=== PATIENT | male | born 1970 | race Caucasian/White ===

== ENCOUNTER → 2020-07-03 08:16 | Outpatient (CLI) | payer OTHER, SELFPAY ==
--- NOTE | ~2020-07-03 | CT_ITS ---
EXAMINATION: CT pelvis wo con DATE: 07/03/2020 08:42 INDICATION: Left lower quadrant abdominal/pelvic pain. TECHNIQUE: Computed tomography (CT) of the pelvis was performed without intravenous contrast. Automat ed exposure control and iterative reconstruction technique were employed. The dose-length product was 451.75 mGy-cm. COMPARISON: None FINDINGS: Moderate amount of stool scattered throughout the visualized colon. No bowel obstruction. Normal appe ndix. Postoperative change of prior right inguinal hernia mesh repair. Bladder is normal. Visualized caudal tip of the right hepatic lobe and the lower poles of both kidneys are also normal. No free int raperitoneal gas or fluid. No pathologically enlarged abdominal or pelvic lymphadenopathy. Mild lower lumbar spondylosis and mild bilateral hip and sacroiliac osteoarthritis. IMPRESSION: 1. Moderate amount of colonic stool which could be seen with constipation. Otherwise no evident acute process in the pelvis or visualized lower abdomen. 2. Postoperative change of prior right inguinal hernia repair. Reviewed, dictated and finalized at location A. IMPRESSION: 1. Moderate amount of colonic stool which could be seen with constipation. Othe rwise no evident acute process in the pelvis or visualized lower abdomen. 2. Postoperative change of prior right inguinal hernia repair.
== END ==
PROVIDERS: PCP Family Medicine; Visit Provider Surgery
DX: R10.32 Left lower quadrant pain (principal); R10.33 Periumbilical pain; Z98.890 Other specified postprocedural states
CPT/HCPCS: 72192

== ENCOUNTER → 2020-11-10 10:38 | Outpatient (CLI) | payer OTHER, SELFPAY ==
--- NOTE | ~2020-11-10 | MR_ITS ---
EXAMINATION: MR pelvis wo/w con DATE: 11/10/2020 12:02 INDICATION: Left lower quadrant abdominal pain and left groin pain. TECHNIQUE: Magnetic resonance imaging (MRI) of the pelvis was performed without and with 15 mL Multih ance intravenous contrast. Sequences included axial T1-weighted FSE, axial T2-weighted FS FSE, mooney l T1-weighted FSE, coronal T2-weighted FS FSE, sagittal T1-weighted FSE and sagittal T2-weighted FS F SE. Precontrast axial T1-weighted FS FSE and post contrast axial, sagittal and coronal T1-weighted FS FSE were also obtained. COMPARISON: None. FINDINGS: Bone alignment is normal. Small T1 hyperintense hemangioma at S1. Marrow signal is otherwise normal w ith no reactive edema, fracture, osteonecrosis or pathologic marrow replacing process. The bilateral hip joint spaces appear normal with small marginal osteophytes about the acetabula consistent with mi ld osteoarthritis. No hip joint effusions. Mild bilateral sacroiliac osteoarthritis without increased fluid or enhancement to suggest an inflammatory sacroiliitis. Mild to moderate lower lumbar facet os teoarthritis greatest on the right at L5-S1. Visualized bowels are unremarkable with normal appendix. Bladder and prostate are unremarkable. Postoperative change of prior right inguinal hernia mesh repa ir. No ventral or left inguinal hernias. No free fluid in the pelvis. No pathologically enlarged bila teral pelvic or inguinal lymphadenopathy. IMPRESSION: 1. Change of prior right inguinal hernia mesh repair. 2. Mild bilateral hip and sacroiliac osteoarthritis and mild to moderate lower lumbar facet osteoarth ritis. Reviewed, dictated and finalized at location A. IMPRESSION: 1. Change of prior right inguinal hernia mesh repair. 2. Mild bilateral hip and sacroiliac osteoarthritis and mild to moderate lower lumbar facet osteoarthritis.
[2020-11-10 11:24] LABS: Estimated Glomerular Filt Rate > 60
== END ==
PROVIDERS: PCP Internal Medicine; Visit Provider Surgery
DX: R10.32 Left lower quadrant pain (principal); M17.0 Bilateral primary osteoarthritis of knee
CPT/HCPCS: 72197; A9577

== ENCOUNTER 2021-08-20 08:58 | Outpatient (CLI) | payer OTHER, SELFPAY | END 2021-08-20 08:59 | disposition home or self-care (01) | LOC: ANHSURGERY 09:03 | PROVIDERS: PCP Internal Medicine; Visit Provider Surgery | DX: Z01.818 Encounter for other preprocedural examination (principal); K40.90 Unilateral inguinal hernia, without obstruction or gangrene, not specified as recurrent | CPT/HCPCS: 36415; 86850; 86900; 86901 ==

== ENCOUNTER 2021-08-25 00:54 | Day surgery (SDC) | payer OTHER, SELFPAY ==
[2021-08-18 14:57] VITALS: BMI 24.2
--- NOTE | 2021-08-18 15:05 | PC.NURSE ---
Report to the Outpatient Waiting Room, entrance under the green pavilion located off [facility], at time 6:00 on date 08/25/21. OR Time: 8:00. - You and your visitor will be asked a series of questions to screen for COVID 19 for your protection. - Only one visitor is allowed at this time. - The patient visitor is requested to leave or wait in car when not with patient. - A mask is required within the hospital. Patients may have clear liquids (water, carbonated beverages, clear teas, apple juice) until 3 hours prior to surgery (5:00) with a maximum of 20 ounces. - No food from midnight until time of surgery Take the following medications with a SIP of water the morning of surgery: NONE Medications to discontinue per physician: VITAMINS/SUPPLEMENTS Date to take last dose: 08/21/21 Please no make-up, nail syrian, hairspray, perfume, deodorant, or body powder the day of surgery. No jewelry (including any body piercings) or valuables the day of surgery, leave them at home. Please take a shower or bath the night before, or the morning of, surgery with an antibacterial soap. Wear comfortable, loose fitting clothing. HIBICLENS SHOWER - Jewelry must be removed prior to entering the operating room. Rings and piercings that are not removed may be cut off. - The hospital will not accept responsibility for valuables. - Please leave all valuables, including medications, at home the day of surgery. If you are going home after surgery, a licensed tanker truck driver must drive you home. - NO public transportation without another adult. - We recommend that an adult stay with you for 24 hours following discharge. - We also recommend that you do not drive, make important decision, drink alcoholic beverages, or take any drugs that were not prescribed by your health care provider for at least 24 hours after your discharge time. Follow any additional instructions given to you from your surgeon. If you or anyone in your household have experienced Covid symptoms in the past week, please notify your surgeon or the nurse liaison at the phone number below for possible testing. Telephone instructions given to PT - ELSIE REDDY and asked if any additional questions and then verbalized understanding. Patient advised to call surgeon office or pre surgery nurse liaison [phone] if any additional questions.
--- NOTE | 2021-08-24 09:43 | WPDANESEPPF ---
Anes - Initial Pre Proc Eval Procedure: Operation Date: 08/25/21 08:00 Proposed Procedures p Laparoscopic Assisted Left Inguinal Hernia Repair with Mesh, Davinci Assisted - Luis Calix DO <Jed Saldana DO - Last Filed: 09/02/21 09:06> Date/Time: 08/24/21 09:43 <Jed Saldana DO - Last Filed: 09/02/21 09:06> Surgeon: Luis Calix DO <Jed Saldana DO - Last Filed: 09/02/21 09:06> Pre Op Diagnosis: left inguinal hernia <Jed Saladna DO - Last Filed: 09/02/21 09:06> Patient Data Age: 50 Gender: M Height: 1.87 m Weight: 84.5 kg <Jed Saldana DO - Last Filed: 09/02/21 09:06> Allergies Allergy/AdvReac Type Severity Reaction Status Date / Time No Known Allergies Allergy Unknown Verified 08/25/21 06:15 <Jed Saldana DO - Last Filed: 09/02/21 09:06> Home Medications Medication Instructions Recorded Confirmed Type ascorbate calcium (vitamin C) 500 500 mg PO DAILY 05/29/20 08/25/21 History mg tablet glucosamine 750 mg-chondroit 100 1 tablet PO DAILY 05/29/20 08/25/21 History mg-msm-D3 25 [id number] bor tablet cholecalciferol (vitamin D3) 25 25 mcg PO DAILY 06/03/21 08/25/21 History mcg (1,000 unit) capsule hydrocodone 5 mg-acetaminophen 325 1 tablet PO Q4H PRN pain #10 tabs 08/25/21 Rx mg tablet <Jed Saldana DO - Last Filed: 09/02/21 09:06> Patient hx anesthesia problems: none <Jed Saldana DO - Last Filed: 09/02/21 09:06> Family hx anesthesia problems: none <Jed Saldana DO - Last Filed: 09/02/21 09:06> Results Review: All pre-operative results and documents have been reviewed as part of the pre-operative evaluation. <Jed Saldana DO - Last Filed: 09/02/21 09:06> [facility] Past Medical History Medical History: Medical History Inguinal hernia Umbilical hernia <Jed Saldana DO - Last Filed: 09/02/21 09:06> Surgical History Surgical History: Surgical History H/O umbilical hernia repair Umbilical hernia repair 12/11/18 History of shoulder surgery 1993 S/P laparoscopic hernia repair Laparoscopic right inguinal hernia repair with mesh 12/11/18. <Jed Saldana DO - Last Filed: 09/02/21 09:06> Family History Family History: Family History Father Family history of malignant neoplasm Mother Family history of malignant neoplasm Small cell lung cancer <Jed Saldana DO - Last Filed: 09/02/21 09:06> Social History Social History: Social History Smoking status: Never smoker Alcohol intake: current Drinks per week: 4 Alcohol use details: Weekly Substance use: never Substance use type: does not use Spiritual care concerns: No <Jed Saldana DO - Last Filed: 09/02/21 09:06> Anes - Eval Final PreProcedure Day of Procedure 08/24/21 09:43 <Jed Saldana DO - Last Filed: 09/02/21 09:06> Patient weight: normal <Jed Saldana DO - Last Filed: 09/02/21 09:06> Heart: regular rate and rhythm <Jed Saldana DO - Last Filed: 09/02/21 09:06> Lungs: clear to auscultation <Jed Saldana DO - Last Filed: 09/02/21 09:06> Airway: Mallampati scale class II <Jed Saldana DO - Last Filed: 09/02/21 09:06> Neurological: alert and oriented <Jed Saldana DO - Last Filed: 09/02/21 09:06> Last oral intake: >/= 8 hours <Jed Saldana DO - Last Filed: 09/02/21 09:06> ASA classification: III <Jed Saldana DO - Last Filed: 09/02/21 09:06> II <Jason Maguire MD - Last Filed: 08/25/21 07:04> Emergent:
[2021-08-25] VITALS (18 sets, daily range): BP systolic 100–144; BP diastolic 57–88; PULSE 63–87; RESP 12–16; TEMP 36.3–36.4; O2SAT 99–100; BMI 24.0
[2021-08-25] MEDS: LACTATED RINGERS 1,000 ML 30 ML IV CONT ×3 (07:13→12:35)
[2021-08-25] MEDS: KETOROLAC 15 MG/ML VIAL (*BKC) IV PUSH (07:16)
[2021-08-25] MEDS: ACETAMINOPHEN 500 MG TABLET 1000 MG PO (07:36)
--- NOTE | 2021-08-25 07:43 | WPDHPUPDATE1 ---
History and Physical Update Update Date/Time: 08/25/21 07:43 History and Physical has been reviewed, including an updated exam of the patient. There are NO changes in the patient's condition. Risks, benefits, and alternatives have been discussed and questions answered. Patient agrees to proceed with procedure.
--- NOTE | 2021-08-25 07:43 | PM.IMHP ---
H&P: HPI History of Present Illness Date/Time: 08/25/21 07:43 Chief Complaint: Left inguinal hernia Narrative: 50 yo man presents for left inguinal hernia repair. He reports no changes since last seen in office. Review of Systems Review of Systems: All systems reviewed & are unremarkable except as noted in HPI and below Constitutional: Constitutional: Denies chills, Denies fever(s), Denies headache(s) and Denies weight loss Eyes: Eyes: Denies change in vision ENT: Denies dizziness, Denies headache(s), Denies neck mass and Denies throat swelling Cardiovascular: Cardiovascular: Denies chest pain, Denies lightheadedness and Denies dyspnea Respiratory: Respiratory: Denies cough, Denies dyspnea and Denies wheezing Gastrointestinal: Gastrointestinal: Denies abdominal pain, Denies change in bowel habits, Denies nausea and Denies vomiting Genitourinary: Genitourinary: Denies hematuria and Denies dysuria Musculoskeletal: Musculoskeletal: Reports as per HPI Integumentary/Breasts: Skin/Breast: Reports as per HPI Neurologic: Denies dizziness and Denies headache(s) Allergic/Immunologic: Allergic/Immunologic: Denies throat swelling and Denies wheezing [facility] Past Medical History Medical History Inguinal hernia Umbilical hernia Surgical History Surgical History H/O umbilical hernia repair Umbilical hernia repair 12/11/18 History of shoulder surgery 1993 S/P laparoscopic hernia repair Laparoscopic right inguinal hernia repair with mesh 12/11/18. Family History Family History Father Family history of malignant neoplasm Mother Family history of malignant neoplasm Small cell lung cancer Social History Social History Smoking status: Never smoker Alcohol intake: current Drinks per week: 4 Alcohol use details: Weekly Substance use: never Substance use type: does not use Living arrangements: with family Spiritual care concerns: No Meds Home Medications and Allergies Home Medications Medication Instructions Recorded Confirmed Type ascorbate calcium (vitamin C) 500 500 mg PO DAILY 05/29/20 08/25/21 History mg tablet glucosamine 750 mg-chondroit 100 1 tablet PO DAILY 05/29/20 08/25/21 History mg-msm-D3 25 [id number]-[id number] bor tablet cholecalciferol (vitamin D3) 25 25 mcg PO DAILY 06/03/21 08/25/21 History mcg (1,000 unit) capsule Allergies Allergy/AdvReac Type Severity Reaction Status Date / Time No Known Allergies Allergy Unknown Verified 08/25/21 06:15 Vital Signs Vital Signs - 24 hr 08/25/21 06:05 Temperature 36.4 C Pulse Rate 70 Respiratory Rate 16 Blood Pressure 120/78 Pulse Oximetry 100 Oxygen Delivery Room Air Exam Const: General: no acute distress and alert Orientation/consciousness: patient oriented x3 HENMT: Head: normocephalic and atraumatic Ears: hearing grossly normal bilaterally General nose exam: Normal nares present Mouth: Yes Normal oral and palatal mucosa present Eyes: Periorbital: periorbital findings normal Sclera: sclerae normal EOM: EOMs intact bilaterally Neck: Neck: normal visual inspection, no lymphadenopathy and trachea midline Chest: Chest palpation & inspection: normal inspection of the chest Resp: Effort & Inspection: normal respiratory effort Auscultation: clear to auscultation bilaterally Cardio: Jugular venous distension: no JVD Rate: regular rate Rhythm: regular rhythm Heart sounds: S1 normal heart sound present and S2 normal heart sound present Peripheral pulses: Peripheral pulses 2+ throughout GI: Inspection: normal to inspection GI Palp: Yes Soft to palpation, No Tenderness to palpation present (GI), No Guarding due to palpation present (GI) and No Rebound tenderness present P
--- NOTE | 2021-08-25 07:45 | SUR.PREOP ---
0745- Notified Dr. Calix patient reported having a sensitive stomach and requested to only take 500MG PO Tylenol. See MAR for administration.
[2021-08-25] MEDS: ceFAZolin 2 GM/D5W 50 ML 2 GM/50 ML BAG IVPB (07:56)
--- NOTE | 2021-08-25 09:06 | W.PM.PROC2 ---
Procedure Note - Detailed Date of Procedure 08/25/21 Pre-op Diagnosis left inguinal hernia Post-op Diagnosis Same (direct left inguinal hernia) Procedure Performed Laparoscopic left inguinal hernia repair with mesh, da Daryl assisted Surgeon Luis Calix DO Anesthesia General and Local (0.5% bupivacaine with epinephrine) Indications This is a 50-year-old man who was been experiencing left groin discomfort off and on for the past year. He has a prior history of umbilical hernia repair and right inguinal hernia repair in 2019. Previous imaging showed no evidence of a left inguinal hernia, but 3 months ago on physical exam a small reducible left inguinal hernia was identified. Discussions were made with the patient about treatment options and decision was made to proceed with robotic assisted laparoscopic left inguinal hernia repair with mesh. Findings Laparoscopic left inguinal hernia repair was performed. Upon inspection the patient was found have a small direct left inguinal hernia. The right side was inspected and the mesh still appeared to be in proper position and there was no evidence of a recurrent right inguinal hernia or recurrent umbilical hernia. A robotic transabdominal preperitoneal approach was utilized for repair. Once a wide enough preperitoneal pocket was created, I then placed a large left Bard 3DMax mid mesh overlying the entire left myopectineal orifice. No specimens were obtained for pathology. Description of Procedure Procedure as well as risks, benefits, and alternatives were discussed with the patient. Written consent was obtained and placed in chart prior to procedure. Patient was brought back to surgical suite. He was placed supine on operating table. Time-out was done to confirm patient and procedure. He was then intubated by Anesthesia Department. His abdomen was prepped and draped in sterile fashion using chlorhexidine prep. 0.5% bupivacaine with epinephrine was infiltrated at each location for incision. An 8 mm incision was made in the left lateral abdomen, and a 5 mm Optiview trocar was advanced through the abdominal layers under direct visualization. Once inside the abdominal cavity, carbon dioxide insufflation was used to create a pneumoperitoneum. A camera was inserted and the abdominal cavity was inspected. The patient was placed in slight Trendelenburg position. An 8 millimeter incision was made on the right lateral abdomen and an 8 millimeter trocar was inserted under direct visualization. Another 8 millimeter incision was made just superior to the umbilicus and an 8 millimeter trocar was inserted under direct visualization. The 5 mm port was then removed and this was replaced with another 8 mm robotic port. The robotic arms were brought up to the patient's bedside and secured to the ports. The camera and instruments were inserted. I then moved over to the robotic console and took control of the camera and instruments. After careful inspection of the abdominal cavity, I began scoring the peritoneum along the left lower quadrant using scissors with electrocautery. The preperitoneal plane was entered and this was carefully dissected caudally along the inferior epigastric vessels. Careful dissection with scissors with electrocautery and blunt dissection was used to continue this dissection. I dissected far enough laterally to allow for mesh placement, and also dissected medially to identify the pubic arch and Hiram's ligament. The hernia sac was identified and carefully dissected posteriorly. The cord contents were also identified and the peritoneum was carefully dissected far enough posteriorly to allow for mesh placement. Once an adequate pocket was created, I then placed the mesh within the preperitoneal pocket and carefully unfolded it. The mesh was centered on the hernia defect with adequate overlap circumferentially. The inferior edge of the mesh was inspected to ensure that it was far enough away fr
[2021-08-25] MEDS: oxyCODONE HCL (*CRX) 5 MG TAB IR PO (10:59)
--- NOTE | 2021-08-25 11:50 | SUR.PHASEII ---
pt attempted to void with no success. pt given coffee, juice, and has IV fluids infusing
--- NOTE | 2021-08-25 14:07 | SUR.PHASEII ---
at 1300 pt still has not voided after pushing PO fluids and after the third liter of fluid. This nurse bladder scanned pt and he had 190ml in his bladder. this nurse spoke with dr gibson in recovery and he said to continue to monitor and push po fluids and continue attempts and to recheck bladder scan at 1500 and reassess.
--- NOTE | 2021-08-25 15:02 | SUR.PHASEII ---
pt has been in the bathroom for about 30 minutes attemting to void he said he wants more time
== END 2021-08-25 15:45 | disposition home or self-care (01) ==
PROVIDERS: PCP Internal Medicine; Visit Provider Surgery
PROC: 8E0Y4CZ Robotic Assisted Procedure of Lower Extremity, Percutaneous Endoscopic Approach (ICD-10-PCS; CPT 49650; principal; 2021-08-25 08:00)
DX: K40.90 Unilateral inguinal hernia, without obstruction or gangrene, not specified as recurrent (principal)
CPT/HCPCS: 49650; S2900; 36415; 86850; 86900; 86901; A9270; C1781; J0690; J1100; J1170; J1885; J2250; J2405; J2704; J2710; J3010; J7120

== ENCOUNTER 2021-09-28 00:17 | Day surgery (SDC) | payer OTHER, SELFPAY ==
[2021-09-21 15:26] VITALS: BMI 24.0
--- NOTE | 2021-09-21 15:31 | PC.NURSE ---
Report to the Outpatient Waiting Room, entrance under the green pavilion located off [facility], at time 0930 on date 09/28/21. OR Time: 1130. - You and your visitor will be asked a series of questions to screen for COVID 19 for your protection. - Only one visitor is allowed at this time. - The patient visitor is requested to leave or wait in car when not with patient. - A mask is required within the hospital. Patients may have clear liquids (water, carbonated beverages, clear teas, apple juice) until 3 hours prior to surgery with a maximum of 20 ounces. - No food from midnight until time of surgery Take the following medications with a SIP of water the morning of surgery: NONE Medications to discontinue per physician: VITAMINS/SUPPLEMENTS Date to take last dose: 09/24/21 Please no make-up, nail puerto rican, hairspray, perfume, deodorant, or body powder the day of surgery. No jewelry (including any body piercings) or valuables the day of surgery, leave them at home. Please take a shower or bath the night before, or the morning of, surgery with an antibacterial soap. Wear comfortable, loose fitting clothing. HIBICLENS SHOWER - Jewelry must be removed prior to entering the operating room. Rings and piercings that are not removed may be cut off. - The hospital will not accept responsibility for valuables. - Please leave all valuables, including medications, at home the day of surgery. If you are going home after surgery, a licensed auto driver must drive you home. - NO public transportation without another adult. - We recommend that an adult stay with you for 24 hours following discharge. - We also recommend that you do not drive, make important decision, drink alcoholic beverages, or take any drugs that were not prescribed by your health care provider for at least 24 hours after your discharge time. Follow any additional instructions given to you from your surgeon. If you or anyone in your household have experienced Covid symptoms in the past week, please notify your surgeon or the nurse liaison at the phone number below for possible testing. Telephone instructions given to PT - ELSIE REDDY and asked if any additional questions and then verbalized understanding. Patient advised to call surgeon office or pre surgery nurse liaison [phone] if any additional questions.
[2021-09-28] VITALS (8 sets, daily range): BP systolic 106–119; BP diastolic 61–77; PULSE 49–85; RESP 12–16; TEMP 36.2–36.4; O2SAT 100
--- NOTE | 2021-09-28 09:59 | WPDANESEPPF ---
Anes - Initial Pre Proc Eval Procedure: Operation Date: 09/28/21 11:30 Proposed Procedures p Umbilical Exploration with Excision Umbilical Suture Granuloma - Luis Calix DO Date/Time: 09/28/21 09:59 Surgeon: Luis Calix DO Pre Op Diagnosis: umbilical wound Patient Data Age: 50 Gender: M Height: 1.87 m Weight: 84 kg Allergies Allergy/AdvReac Type Severity Reaction Status Date / Time No Known Allergies Allergy Unknown Verified 09/21/21 15:25 Home Medications Medication Instructions Recorded Confirmed Type ascorbate calcium (vitamin C) 500 500 mg PO DAILY 05/29/20 09/21/21 History mg tablet glucosamine 750 mg-chondroit 100 1 tablet PO DAILY 05/29/20 09/21/21 History mg-msm-D3 25 [id number] bor tablet cholecalciferol (vitamin D3) 25 25 mcg PO DAILY 06/03/21 09/21/21 History mcg (1,000 unit) capsule Patient hx anesthesia problems: post op nausea/vomiting Family hx anesthesia problems: none Results Review: All pre-operative results and documents have been reviewed as part of the pre-operative evaluation. [facility] Past Medical History Medical History Inguinal hernia Umbilical hernia Surgical History Surgical History H/O umbilical hernia repair Umbilical hernia repair 12/11/18 History of shoulder surgery 1993 S/P laparoscopic hernia repair Laparoscopic right inguinal hernia repair with mesh 12/11/18. Family History Family History Father Family history of malignant neoplasm Mother Family history of malignant neoplasm Small cell lung cancer Social History Social History Smoking status: Never smoker Alcohol intake: current Drinks per week: 4 Alcohol use details: Weekly Substance use: never Substance use type: does not use Living arrangements: with family Spiritual care concerns: No Anes - Eval Final PreProcedure Day of Procedure 09/28/21 09:59 Patient weight: normal Heart: regular rate and rhythm Lungs: clear to auscultation Airway: Mallampati scale class 1 Neurological: alert and oriented Last oral intake: >/= 8 hours ASA classification: I Emergent: no Anesthetic plan: proceed Anesthesia type and monitoring: general GIVS and standard monitoring Results Review: All pre-operative results and documents have been reviewed as part of the pre-operative evaluation. Informed Consent: The patient's anesthetic plan and its attendant risks and benefits were discussed with the patient/family/POA. Questions were solicited and answers provided to the satisfaction of the patient/family/POA.
[2021-09-28] MEDS: LACTATED RINGERS 1,000 ML 30 ML IV CONT (10:30)
--- NOTE | 2021-09-28 10:42 | WPDHPUPDATE1 ---
History and Physical Update Update Date/Time: 09/28/21 10:42 History and Physical has been reviewed, including an updated exam of the patient. There are NO changes in the patient's condition. Risks, benefits, and alternatives have been discussed and questions answered. Patient agrees to proceed with procedure.
[2021-09-28] MEDS: BACITRACIN OINTMENT 15 GM TUBE 1 APPLIC TOPICAL (11:25)
--- NOTE | 2021-09-28 11:36 | W.PM.PROC2 ---
Procedure Note - Detailed Date of Procedure 09/28/21 Pre-op Diagnosis umbilical wound, suture granuloma Post-op Diagnosis Same Procedure Performed Umbilical exploration with excision of suture Surgeon Luis Calix, DO Anesthesia General and Local (1% lidocaine with epinephrine) Indications This is a 50-year-old man who presented with recurrent infections at the base of his umbilicus. He has a history of umbilical hernia repair without mesh 2 years ago. Over the past 6 months to a year he has had a couple episodes of redness and drainage at the base of his umbilicus. He was found to have a lot of granulation tissue and tenderness around this region. Suture granuloma was suspected as the cause of the recurrent wound openings and drainage. Decision was made to proceed with umbilical exploration with excision of suture granuloma. Findings Umbilical exploration was performed. There was a 3 mm x 3 mm wound opening at the base of the umbilicus with hypergranulation. As the granulation was carefully debrided away, I was able to identify an Ethibond suture at the base of the umbilicus. This was lifted and removed. No other sutures were identified protruding within the wound. Electrocautery was used for hemostasis and improved granulation. No specimens were obtained for pathology. Description of Procedure Procedure as well as risks, benefits, and alternatives were discussed with the patient. Written consent was obtained and placed in chart prior to procedure. Patient was brought back to surgical suite. He was placed supine on operating table. Time-out was done to confirm patient and procedure. He was then intubated by the anesthesia department. His abdomen was prepped and draped in sterile fashion using Betadine prep and chlorhexidine prep. 1% lidocaine with epinephrine was infiltrated locally around the wound. The base of the umbilicus was carefully inspected. The hypergranulation tissue was debrided using DeBakey forceps. An Ethibond suture was noted at the base of the granulation tissue. This was carefully lifted and excised using curved Metzenbaum scissors. The wound bed was further inspected and no other sutures or abnormalities were noted. Electrocautery was used for hemostasis. Bacitracin ointment was then applied followed by a 2 x 2 gauze and Tegaderm dressing. The patient was then awakened from anesthesia, extubated, and transferred to recovery. Estimated Blood Loss 2 Complications No immediate complications Condition Stable Disposition Same day [facility] Billing Surgery - Charge Forward: Surgery Billing
[2021-09-28] MEDS: oxyCODONE HCL (*CRX) 5 MG TAB IR PO (13:02)
== END 2021-09-28 13:40 | disposition home or self-care (01) ==
PROVIDERS: PCP Internal Medicine; Visit Provider Surgery
PROC: (CPT 10121; principal; 2021-09-28 11:30)
DX: L92.3 Foreign body granuloma of the skin and subcutaneous tissue (principal); Z18.89 Other specified retained foreign body fragments
CPT/HCPCS: 10121; A9270; J0690; J1100; J1200; J2250; J2405; J2710; J3010; J7120